=== PATIENT | female | born 1995 | race Hispanic/Latino ===

== ENCOUNTER 2017-10-21 08:27 | Day surgery (SDC) | payer MEDICAID ==
[2017-10-21] MEDS ORDERED: NACL BACTERIOSTATIC INFILTRATI ONE (09:16)
--- NOTE | 2017-10-21 09:36 | Anesthesia Consultation ---
Anesthesia Consult and Med Hx Date of service: 10/21/17 - Airway Anesthetic Teeth Evaluation: Good ROM Head & Neck: Adequate Mental/Hyoid Distance: Adequate Mallampati Class: Class I Intubation Access Assessment: Good - Pulmonary Exam CTA: Yes - Cardiac Exam Cardiac Exam: RRR - Pre-Operative Health Status ASA Pre-Surgery Classification: ASA1 Proposed Anesthetic Plan: General - Pulmonary Hx Smoking: No Hx Sleep Apnea: No (ALEXIS PRE SCREEN NEGATIVE) - Cardiovascular System Hx Hypertension: No - Hematic Hx Anemia: Yes - Other Systems Hx Cancer: No - Additional Comments Anesthesia Medical History Comments: Has cold, stuffy nose and muscus. Clear lungs and ptn has no problem breathing. Had baby in Aug.
--- NOTE | 2017-10-21 09:36 | Anesthesia Day of Surgery ---
Anesthesia Day of Surgery - Day of Surgery Patient Examined: Yes Patient H&P Reviewed: Yes Patient is NPO: Yes
[2017-10-21 09:37] LABS: Hematocrit 35.8 % (30.3-42.9); Hemoglobin 11.8 gm/dl (10.1-14.3)
[2017-10-21] MEDS ORDERED: VERSED IV NR (10:00)
[2017-10-21] MEDS ORDERED: PEPCID IV NR (10:00)
[2017-10-21] MEDS ORDERED: LACTATED RINGERS 1,000 ML IV SCH (10:00)
--- NOTE | 2017-10-21 11:43 | XRay Report ---
SUPINE KUB: History: Kidney stones There are multiple bilateral calcifications overlying the renal shadows consistent with bilateral nephrolithiasis. No obvious calcifications overlying the course of the ureters or bladder. The bowel gas pattern is normal. Bilateral tubal ligation clips are noted. IMPRESSION: Bilateral nephrolithiasis.
[2017-10-21] MEDS ORDERED: ANCEF/STERILE WATER 2 GM/20 ML IV NR (12:00)
[2017-10-21] MEDS ORDERED: SUBLIMAZE ONE (13:50)
[2017-10-21] MEDS ORDERED: DIPRIVAN 10 MG/ML IV ONE ×2 (13:50→14:10)
[2017-10-21] MEDS ORDERED: XYLOCAINE MPF 2% ONE (13:52)
[2017-10-21] MEDS ORDERED: DECADRON ONE (14:23)
[2017-10-21] MEDS ORDERED: ZOFRAN ONE ×2 (14:23→17:52)
[2017-10-21] MEDS ORDERED: ROBINUL ONE (14:24)
[2017-10-21] MEDS ORDERED: NEO SYNEPHRINE/NS Syringe(OR USE) IV ONE (14:30)
--- NOTE | 2017-10-21 15:09 | Post Anesthesia Evaluation ---
- Post Anesthesia Evaluation Patient Participated: Yes Airway Patent: Yes Stable Respiratory Function: Yes Temp > 96.8F: Yes Pain Manageable: Yes Adequeate Hydration: Yes Anesthesia Complications: No
[2017-10-21] MEDS: DILAUDID IV PRN ×3 (15:15→15:35)
[2017-10-21] MEDS ORDERED: DILAUDID ONE (15:16)
--- NOTE | 2017-10-21 16:13 | Short Stay Summary ---
Short Stay Documentation Date of service: 10/21/17 - History H&P: obtained from office - Allergies and Medications Current Medications: Allergies No Known Allergies Allergy (Verified 10/12/17 17:23) Home Medications Medication Instructions Recorded Confirmed Last Taken Type Docusate Sodium [Colace] 100 mg PO DAILY 10/12/17 10/12/17 Unknown History Multivit-Min/FA/Lycopen/Lutein 1 each PO DAILY 10/12/17 10/12/17 10/20/17 History [Centrum Silver Tablet] Active Medications Cefazolin Sodium (Ancef/Sterile Water 2 Gm/20 Ml) 2 gm IV PREOP NR Stop: 10/21/17 23:59 Famotidine (Pepcid) 20 mg IV PREOP NR Stop: 10/21/17 23:59 Last Admin: 10/21/17 10:02 Dose: 20 mg Hydromorphone HCl (Dilaudid) 0.5 mg IV Q10M PRN PRN Reason: Pain , Severe (7-10) Stop: 10/21/17 23:59 Last Admin: 10/21/17 15:35 Dose: 0.5 mg Lactated Ringer's (Lactated Ringers) 1,000 mls @ 100 mls/hr IV DIRECT BENIGNO Last Admin: 10/21/17 10:01 Dose: 100 mls/hr Midazolam HCl (Versed) 2 mg IV PREOP NR Stop: 10/21/17 23:59 Last Admin: 10/21/17 10:04 Dose: 2 mg - Brief post op/procedure progress note Date of procedure: 10/21/17 Pre-op diagnosis: bilat renal stones mult 2-4mm Post-op diagnosis: same Procedure: right renal eswl Anesthesia: GETA Findings: good vis 2 right stones targeted Surgeon: DANYEL BRAR Estimated blood loss: minimal Pathology: none Specimen disposition: to lab Condition: stable - Hospital course Hospital course: or pacu home - Disposition Condition at discharge: Good Disposition: DC- TO HOME OR SELFCARE Short Stay Discharge Plan Activity: advance as tolerated Diet: advance as tolerated Additional Instructions: PUMP AND DISCARD BREAST MILK FOR 24 HOURS. Follow up with: DANYEL BRAR MD [Staff Physician] - 7 Days
[2017-10-21] MEDS ORDERED: NORCO 10/325 PO PRN (16:56)
[2017-10-21] MEDS ORDERED: PERCOCET 5/325 PO ONE (17:10)
[2017-10-21] MEDS ORDERED: ZOFRAN IV SCH (17:50)
[2017-10-21 20:20] VITALS: BP 111/64
--- NOTE | 2017-11-19 10:35 | Operative Report ---
PREOPERATIVE DIAGNOSIS: Bilateral renal stones, 2-4 mm. POSTOPERATIVE DIAGNOSIS: Bilateral renal stones, 2-4 mm. PROCEDURE: Right renal ESWL. FINDINGS: Good visualization of 2 right stones targeted. SURGEON: Evangelista Benitez MD ESTIMATED BLOOD LOSS: Minimal. PATHOLOGY: None. SPECIMENS: None. CONDITION: Stable. IMPLANTS: None. CLINICAL INDICATION: Counseled RCBA, antibiotics, SCDs. DESCRIPTION OF PROCEDURE: The patient transferred to the OR suite in the supine position, anesthesia begun. Biplanar fluoroscopy was used to target the stone on the right side with an F2. There was good visualization up to the stones. We began targeting the procedure and then once one stone was fragmented, we went on to the second stone and ____ up to 2500 shocks, only a very short period of 5.0 kilovolts, but at the end of the procedure, we could not see these two stones any longer and procedure stopped. The patient awakened and transferred to the PACU in good and stable condition. JOB# [id number] ATS/NTS
== END 2017-10-21 18:30 | disposition home or self-care (01) ==
LOC: OR 08:27
PROVIDERS: ATTEND Urology
DX: N20.0 Calculus of kidney (principal)
CPT/HCPCS: 36415; 50590; 74000; 81025; 85014; 85018; J0690; J1100; J1170; J2250; J2370; J2405; J2704; J3010; J7120